=== PATIENT | male | born 1960 | race Caucasian/White ===

== ENCOUNTER 2022-11-22 08:40 | Emergency (ER) | payer OTHER, BC, SELFPAY ==
[2022-11-22 08:58] VITALS: BP 171/106; PULSE 75; RESP 18; TEMP 36.4; O2SAT 98
--- NOTE | 2022-11-22 09:07 | CRLHL7_ITS ---
For Patients: As a result of the Cures Act, medical imaging exams and procedure reports are released immediately into your electronic medical record. You may view this report before your referring provider. If you have questions, please contact your health care provider. INDICATION: Trauma. Fall. Pain. TECHNIQUE: Three views of the right shoulder. FINDINGS: No acute fracture dislocation. No erosion. Slight flattening along the superior lateral margin of the right humeral head could be related to an ancient dislocation or old impaction type fracture. Please correlate clinically. IMPRESSION: No acute fracture or acute dislocation identified. Dictated by Sundeep Felton MD @ 11/22/2022 9:30:31 AM (Electronically Signed)
--- NOTE | 2022-11-22 09:52 | ED.GENADULT ---
HPI - General Adult General Chief complaint: Shoulder Injury/Pain Stated complaint: Fall/shoulder injury Time Seen by Provider: 11/22/22 10:55 History of Present Illness HPI narrative: This 62-year-old male comes in with an injury to his right shoulder. He was at work when he slipped and fell onto his right shoulder. He did not hit his head or have loss of consciousness. He states that he is unable to move his arm very much because of pain. He does not report any other injury. He did have a prior surgery to this right shoulder apparently to reattached the long head of the biceps. Related Data Home Medications Medication Instructions Recorded Confirmed allopurinol 300 mg tablet 300 mg PO DAILY 11/22/22 11/22/22 celecoxib 200 mg capsule 200 mg PO BID 11/22/22 11/22/22 doxycycline monohydrate 100 mg 100 mg PO DAILY 11/22/22 11/22/22 capsule ivermectin 1 % topical cream applic topical DAILY 11/22/22 Previous Rx's Medication Instructions Recorded hydrocodone 5 mg-acetaminophen 325 1 tab PO Q4-6H PRN pain #15 tabs 11/22/22 mg tablet Allergies Allergy/AdvReac Type Severity Reaction Status Date / Time No Known Drug Allergies Allergy Verified 11/22/22 09:03 Review of Systems Status of ROS: Reports: 10 or more systems reviewed and unremarkable except as noted in History and below Narrative: Constitutional: No fevers, no weight gain or loss. Eyes: No discharge. No vision changes. HENT: No congestion, no sore throat, no ear pain. Cardiovascular: No chest pain, no palpitations. Respiratory: No shortness of breath, no wheezes, no cough. Gastrointestinal: No abdominal pain, no vomiting, no diarrhea. Genitourinary: No dysuria, no hematuria. Musculoskeletal: Right shoulder injury with decreased range of motion. Skin: No rashes, no pruritis. Neurological: No dizziness, weakness, sensory change, speech change. Endo/Heme/Allergies: No bruising or bleeding. No polydipsia. Pysch: no suicidality, no anxiety, no insomnia. All other systems reviewed and are negative. PFS PFS Social History Smoking Status: Unknown if ever smoked Do you use any of these nicotine containing products: None Second hand tobacco smoke exposure: No How often do you have a drink containing alcohol: monthly or less How many standard drinks containing alcohol do you have on a typical day: 1 or 2 How often do you have six or more drinks on one occasion: Never AUDIT-C Alcohol total score: 1 Non-prescribed substance use: denies use Exam Narrative: Exam Narrative: Constitutional: Well-developed, well-nourished, no acute distress. HEENT: Normocephalic, atraumatic. Neck: Normal range of motion. Nontender. Supple. Heart: Regular. No murmurs. Normal rate. Intact distal pulses. Lungs: Clear to auscultation. No chest discomfort. No wheezes, rhonchi, or rales. Abdomen: Normal bowel sounds. Nontender. No rebound tenderness. Genitalia: Deferred. Back: No midline tenderness. Normal range of motion. Extremities: Diffuse pain in the right shoulder without any sign of deformity or significant swelling. He is unable to move his shoulder much because of pain. Skin: Intact. No rash. Warm. No erythema or pallor. Neurologic: No altered sensation. No weakness. Alert and oriented. Psychiatric: No suicidality. No anxiety or depression. No insomnia. Nursing notes and vitals signs are reviewed. Const: Vital Signs, click to edit/add: Vital Signs - 24 hr 11/22/22 08:58 Temperature 97.5 F L Pulse Rate [Right Pulse Oximeter] 75 Respiratory Rate 18 Blood Pressure [Ri ght Upper Arm] 171/106 H Pulse Oximetry 98 Oxygen Delivery Me thod Room Air Course Vital Signs Vital signs: Initial Vital Signs Temperature 97.5 F L 11/22/22 08:58 Temperature Source Temporal Artery Scan 11/22/22 08:58 Pulse Rate 75 11/22/22 08:58 Pulse Rhythm 11/22/22 08:58 Pulse Strength 3+ Normal 11/22/22 08:58 Respiratory Rate 18 11/22/22 08:58 Blood Pressure 171/106 H 11/22/22 08:58 Blood Pressure Mean 127 11/22/22 08:58 Blood Pressure Position Sitting 11/22/22 08:58 Pulse Oximetry 98 11/22/22 08:58 Oxygen Delivery Method 11/22/22 08:58 Vital Signs Temperature 97.5 F L 11/22/22 08:58 Pulse Rate 75 11/22/22 08:58 Respiratory Rate 18 11/22/22 08:58 Blood Pressure 171/106 H 11/22/22 08:58 Pulse Oximetry 98 11/22/22 08:58 Oxygen Delivery Method 11/22/22 08:58 Temperature 97.5 F L 11/22/22 08:58 Pulse Rate 75 11/22/22 08:58 Respiratory Rate 18 11/22/22 08:58 Blood Pressure 171/106 H 11/22/22 08:58 Pulse Oximetry 98 11/22/22 08:58 Oxygen Delivery Method 11/22/22 08:58 Medical Decision Making MDM Narrative Medical decision making narrative: This patient fell onto his right shoulder and comes in for evaluation. X-ray imaging shows no sign of fracture dislocation. The mechanism of injury is somewhat suspicious for a mild AC separation. I am unable to do a thorough shoulder exam because of limitations of pain. The patient received a sling and a prescription for [place]. Follow-up appointment is made for orthopedic clinic. A return to work note is also provided. Imaging Data XR Shoulder: Radiologist's impression: No acute fracture or acute dislocation identified. Discharge Plan Discharge Clinical Impression: Injury of shoulder, right Patient Disposition: Home, Self-Care Condition: Unchanged Additional Instructions: Wear sling and use medication as needed and directed. Increase activity as tolerated. Follow up with orthopedic clinic as scheduled. Prescriptions: New hydrocodone-acetaminophen 5-325 mg tablet 1 tab PO Q4-6H PRN (Reason: pain) Qty: 15 0RF No Action allopurinol 300 mg tablet 300 mg PO DAILY celecoxib 200 mg capsule 200 mg PO BID doxycycline monohydrate 100 mg capsule 100 mg PO DAILY ivermectin 1 % cream TOPICAL DAILY Stand Alone Forms: [facility] Info Instructions
== END 2022-11-22 11:41 | disposition home or self-care (01) ==
PROVIDERS: Emergency Provider Emergency Medicine Emergency Medical Services; PCP Family Medicine
DX: M25.511 Pain in right shoulder (principal); W01.0XXA Fall on same level from slipping, tripping and stumbling without subsequent striking against object, initial encounter
CPT/HCPCS: 73030; 99283; 99284